=== PATIENT | female | born 1985 | race Caucasian/White ===

== ENCOUNTER 2020-08-07 10:15 | Observation (INO) | payer OTHER ==
[~2020-08-07] VITALS: Ht 167.6 cm; Wt 156.0 kg
[~2020-08-07 10:15] MED LIST: OLAN10 PO
[2020-08-07 10:59] LABS: BASOPHILS ABSOLUTE AUTO 0.04 K/mm3 (0.00-0.23); BASOPHILS PERCENT AUTO 0 % (0-2); EOSINOPHILS ABSOLUTE AUTO 0.13 K/mm3 (0.00-0.68); EOSINOPHILS PERCENT AUTO 1 % (0-6); Hematocrit 38.6 % (33.0-51.0); Hemoglobin 13.1 g/dL (11.5-16.0); IMMATURE GRAN ABSOLUTE AUTO 0.05 K/mm3 (0.00-0.10); IMMATURE GRAN PERCENT AUTO 0 % (0-1); LYMPHOCYTES ABSOLUTE AUTO 2.24 K/mm3 (0.84-5.20); LYMPHOCYTES PERCENT AUTO 17 % (21-46); MONOCYTES ABSOLUTE AUTO 0.68 K/mm3 (0.16-1.47); MONOCYTES PERCENT AUTO 5 % (4-13); Mean Corpuscular HGB 30.8 pg (26.0-34.0); Mean Corpuscular HGB Conc 33.9 g/dL (31.5-36.5); Mean Corpuscular Volume 91 fL (80-100); Mean Platelet Volume 10.4 fL (9.1-12.4); NEUTROPHILS ABSOLUTE AUTO 9.73 K/mm3 (1.96-9.15); NEUTROPHILS PERCENT AUTO 76 % (41-73); Platelet Count 278 K/mm3 (150-400); RDW Coefficient Variation 13.2 % (11.7-14.2); Red Blood Cell Count 4.26 M/mm3 (3.80-5.20); White Blood Cell Count 12.87 K/mm3 (4.00-11.30)
[2020-08-07 11:21] LABS: Ethanol (Alcohol), Blood, Med <3 mg/dL
[2020-08-07 11:22] LABS: Alanine Aminotransfer (ALT/SGP 26 U/L (12-78); Albumin, Blood 3.1 g/dL (3.4-5.0); Albumin/Globulin Ratio 0.8 (0.8-1.8); Alk Phos 49 U/L (50-136); Anion Gap 7 mmol/L (6-16); Aspartate Aminotrans (AST/SGOT 17 U/L (12-37); Bilirubin, Total 0.4 mg/dL (0.1-1.0); Blood Urea Nitrogen 5 mg/dL (8-24); Bun/Creatinine Ratio 10.3 (12.0-20.0); CO2, Blood 24 mmol/L (21-32); Calcium, Blood 8.7 mg/dL (8.5-10.1); Chloride, Blood 103 mmol/L (98-108); Creatinine, Blood 0.49 mg/dL (0.40-1.00); Free Thyroxine 1.11 ng/dL (0.70-1.60); Globulin, Blood 3.9 g/dL (2.2-4.0); Glomerular Filtration Rate >60 (60-); Glucose, Blood 161 mg/dL (70-99); Potassium, Blood 3.4 mmol/L (3.5-5.5); Salicylate 2.8 mg/dL (2.8-20.0); Sodium, Blood 134 mmol/L (136-145)
[2020-08-07 11:25] LABS: Acetaminophen, Random <2.0 ug/mL (10.0-30.0)
[2020-08-07 13:42] LABS: SARS-Cov-2 (COVID-19) PCR, MMC NEGATIVE (NEGATIVE)
[2020-08-07 13:46] LABS: Source, Urine Clean Catch
[2020-08-07 13:51] LABS: Bilirubin, Urine Neg (Neg); Blood, Urine Neg (Neg); Glucose Qualitative, Urine Neg (Neg); Ketones, Urine 4+ (Neg); Leukocyte Esterase, Urine 1+ (Neg); Nitrite, Urine Neg (Neg); Protein, Urine 2+ (Neg); Urobilinogen, Urine 3+ (Normal)
[2020-08-07 13:59] LABS: Appearance, Urine Hazy (Clear); Color, Urine Yellow (P-Yellow)
[2020-08-07 14:02] LABS: Bacteria Many /hpf; Mucus Light (0-Heavy); Red Blood Cells, Urine Not Seen /hpf (0-2); Squamous Epithelial Cells Many /hpf (Few); White Blood Cells, Urine 0-2 /hpf (0-5)
[2020-08-07 14:04] LABS: U Amphetamine Screen Not Detected; U Barbituate Screen Not Detected; U Benzodiazapine Screen Not Detected; U Buprenorphine Screen Not Detected; U Cannabinoids Screen DETECTED; U Cocaine Screen Not Detected; U Methadone Screen Not Detected; U Methamphetamine Screen Not Detected; U Opiates Screen Not Detected; U Oxycodone Screen Not Detected; U Phencyclidine Screen Not Detected; U Propoxyphene Screen Not Detected
[2020-08-07] MEDS ORDERED: LISI5 PO (21:01)
[2020-08-07] MEDS ORDERED: OLANZAPINE PO (21:01)
[2020-08-07] MEDS ORDERED: METFORMIN HCL500 M2 PO (21:01)
[2020-08-07] MEDS ORDERED: PRENATAL TABLE1 EAC2 PO (21:01)
[2020-08-07] MEDS ORDERED: METFORMIN HCL500 M3 PO (21:02)
[2020-08-07] MEDS ORDERED: SEMGLEE PE100 UNIT/1 SC (21:03)
[2020-08-07] MEDS ORDERED: ADMELOG SO100 UNIT/2 SC (21:04)
== END 2020-08-11 12:30 | disposition home or self-care (01) ==
LOC: ER 10:15 → EOR 10:16
PROVIDERS: ADMIT Emergency Medicine
DX: O99.341 Other mental disorders complicating pregnancy, first trimester (principal); F31.60 Bipolar disorder, current episode mixed, unspecified; Z3A.10 10 weeks gestation of pregnancy; O99.311 Alcohol use complicating pregnancy, first trimester; O99.321 Drug use complicating pregnancy, first trimester; F19.10 Other psychoactive substance abuse, uncomplicated; F10.10 Alcohol abuse, uncomplicated; Y90.0 Blood alcohol level of less than 20 mg/100 ml; I10 Essential (primary) hypertension; E11.9 Type 2 diabetes mellitus without complications; Z88.1 Allergy status to other antibiotic agents; Z88.8 Allergy status to other drugs, medicaments and biological substances; Z20.822 Contact with and (suspected) exposure to COVID-19
CPT/HCPCS: 36415; 76801; 80053; 81001; 81025; 82947; 84439; 84443; 84702; 85025; 87086; 96372; 99285-25; A9270; G0378; G0480; U0004

== ENCOUNTER → 2020-08-28 | Outpatient (CLI) | payer OTHER ==
[~2020-08-28] MED LIST changes: +ABILIFY MYCITE10 M2 PO; +ADMELOG SO100 UNIT/2 SC; +CLOTRIMAZOLE AF1525 TOP; +GLYBURIDE5 M2 PO; +LISI5 PO; +METFORMIN HCL500 M2 PO; +METFORMIN HCL500 M3 PO; +OLANZAPINE PO; +PRENATAL TABLE1 EAC2 PO; +SEMGLEE PE100 UNIT/1 SC
[2020-08-28 11:49] LABS: Source, Urine Clean Catch
[2020-08-28 14:50] LABS: Appearance, Urine Clear (Clear); Bilirubin, Urine Neg (Neg); Blood, Urine Neg (Neg); Color, Urine Yellow (P-Yellow); Glucose Qualitative, Urine 4+ (Neg); Ketones, Urine 1+ (Neg); Leukocyte Esterase, Urine 1+ (Neg); Nitrite, Urine Neg (Neg); Protein, Urine 1+ (Neg); Urobilinogen, Urine NORM (Normal)
[2020-08-28 15:47] LABS: Mucus Light (0-Heavy); Squamous Epithelial Cells Mod /hpf (Few)
[2020-08-28 15:48] LABS: Amorphous Light (0-Heavy); Bacteria Few /hpf; Red Blood Cells, Urine 0-2 /hpf (0-2); Transitional Epithelial Cells Rare /hpf (0-Rare)
== END | disposition home or self-care (01) ==
LOC: LAB SHORT 11:47 → LAB UCHC 11:47
PROVIDERS: Family Medicine
DX: Z34.91 Encounter for supervision of normal pregnancy, unspecified, first trimester (principal)
CPT/HCPCS: 81001; 87086

== ENCOUNTER 2020-09-02 10:04 | Observation (INO) | payer OTHER ==
[~2020-09-02] VITALS: Ht 167.6 cm; Wt 160.6 kg
[~2020-09-02 10:04] MED LIST changes: -ABILIFY MYCITE10 M2 PO; -CLOTRIMAZOLE AF1525 TOP; -GLYBURIDE5 M2 PO
[2020-09-02 15:09] LABS: BASOPHILS ABSOLUTE AUTO 0.05 K/mm3 (0.00-0.23); BASOPHILS PERCENT AUTO 0 % (0-2); EOSINOPHILS PERCENT AUTO 1 % (0-6); Hematocrit 37.4 % (33.0-51.0); Hemoglobin 12.4 g/dL (11.5-16.0); IMMATURE GRAN ABSOLUTE AUTO 0.08 K/mm3 (0.00-0.10); IMMATURE GRAN PERCENT AUTO 1 % (0-1); LYMPHOCYTES ABSOLUTE AUTO 2.49 K/mm3 (0.84-5.20); LYMPHOCYTES PERCENT AUTO 17 % (21-46); MONOCYTES ABSOLUTE AUTO 1.15 K/mm3 (0.16-1.47); MONOCYTES PERCENT AUTO 8 % (4-13); Mean Corpuscular HGB 30.5 pg (26.0-34.0); Mean Corpuscular HGB Conc 33.2 g/dL (31.5-36.5); Mean Corpuscular Volume 92 fL (80-100); Mean Platelet Volume 10.5 fL (9.1-12.4); NEUTROPHILS ABSOLUTE AUTO 10.45 K/mm3 (1.96-9.15); NEUTROPHILS PERCENT AUTO 72 % (41-73); Platelet Count 291 K/mm3 (150-400); RDW Coefficient Variation 13.2 % (11.7-14.2); Red Blood Cell Count 4.06 M/mm3 (3.80-5.20); White Blood Cell Count 14.42 K/mm3 (4.00-11.30)
[2020-09-02 15:24] LABS: Alanine Aminotransfer (ALT/SGP 35 U/L (12-78); Albumin/Globulin Ratio 0.8 (0.8-1.8); Alk Phos 43 U/L (50-136); Anion Gap 8 mmol/L (6-16); Aspartate Aminotrans (AST/SGOT 14 U/L (12-37); Bilirubin, Total 0.2 mg/dL (0.1-1.0); Blood Urea Nitrogen 7 mg/dL (8-24); Bun/Creatinine Ratio 12.3 (12.0-20.0); CO2, Blood 24 mmol/L (21-32); Calcium, Blood 8.7 mg/dL (8.5-10.1); Chloride, Blood 103 mmol/L (98-108); Creatinine, Blood 0.57 mg/dL (0.40-1.00); Ethanol (Alcohol), Blood, Med <3 mg/dL; Globulin, Blood 3.9 g/dL (2.2-4.0); Glomerular Filtration Rate >60 (60-); Glucose, Blood 148 mg/dL (70-99); Potassium, Blood 3.6 mmol/L (3.5-5.5); Salicylate 3.9 mg/dL (2.8-20.0); Sodium, Blood 135 mmol/L (136-145); Total Protein, Blood 6.9 g/dL (6.4-8.2)
[2020-09-02 15:33] LABS: Acetaminophen, Random <2.0 ug/mL (10.0-30.0)
[2020-09-02 16:19] LABS: SARS-Cov-2 (COVID-19) PCR, MMC NEGATIVE (NEGATIVE)
[2020-09-03 14:51] LABS: Source, Urine Clean Catch
[2020-09-03 14:57] LABS: Appearance, Urine Hazy (Clear); Bilirubin, Urine Neg (Neg); Blood, Urine Neg (Neg); Color, Urine Yellow (P-Yellow); Glucose Qualitative, Urine Neg (Neg); Ketones, Urine Neg (Neg); Leukocyte Esterase, Urine Neg (Neg); Nitrite, Urine Neg (Neg); Protein, Urine Neg (Neg); Urobilinogen, Urine NORM (Normal); pH, Urine 6.5 (5.0-8.0)
[2020-09-03 16:14] LABS: Red Blood Cells, Urine Not Seen /hpf (0-2); Squamous Epithelial Cells Rare /hpf (Few); White Blood Cells, Urine 0-2 /hpf (0-5)
[2020-09-03 16:15] LABS: Bacteria Mod /hpf
[2020-09-03 16:28] LABS: U Cannabinoids Screen DETECTED
[2020-09-03 16:29] LABS: U Amphetamine Screen Not Detected; U Barbituate Screen Not Detected; U Benzodiazapine Screen DETECTED; U Buprenorphine Screen Not Detected; U Cocaine Screen Not Detected; U Methadone Screen Not Detected; U Methamphetamine Screen Not Detected; U Opiates Screen Not Detected; U Oxycodone Screen Not Detected; U Phencyclidine Screen Not Detected; U Propoxyphene Screen Not Detected
== END 2020-09-06 05:49 ==
LOC: ER 10:04 → EOR 10:05
PROVIDERS: ADMIT Emergency Medicine
DX: O99.342 Other mental disorders complicating pregnancy, second trimester (principal); F31.2 Bipolar disorder, current episode manic severe with psychotic features; O24.312 Unspecified pre-existing diabetes mellitus in pregnancy, second trimester; E11.9 Type 2 diabetes mellitus without complications; O10.912 Unspecified pre-existing hypertension complicating pregnancy, second trimester; O99.212 Obesity complicating pregnancy, second trimester; E66.9 Obesity, unspecified; O99.332 Smoking (tobacco) complicating pregnancy, second trimester; F17.210 Nicotine dependence, cigarettes, uncomplicated; O99.322 Drug use complicating pregnancy, second trimester; F19.10 Other psychoactive substance abuse, uncomplicated; O99.312 Alcohol use complicating pregnancy, second trimester; F10.10 Alcohol abuse, uncomplicated; Z3A.16 16 weeks gestation of pregnancy; Y90.9 Presence of alcohol in blood, level not specified; Z20.822 Contact with and (suspected) exposure to COVID-19; Z88.8 Allergy status to other drugs, medicaments and biological substances; Z88.1 Allergy status to other antibiotic agents; Z91.030 Bee allergy status
CPT/HCPCS: 80053; 81001; 85025; 87086; 99285; A9270; G0378; G0480; Q3014; U0004

== ENCOUNTER 2020-10-02 23:24 | Emergency (ER) | payer OTHER ==
[~2020-10-02] VITALS: Ht 167.6 cm; Wt 160.1 kg
[2020-10-03] MEDS ORDERED: CLOTRIMAZOLE AF1525 TOP (06:16)
== END 2020-10-03 02:16 | disposition left against medical advice (07) ==
LOC: ER 23:24
DX: R53.1 Weakness (principal); Z53.21 Procedure and treatment not carried out due to patient leaving prior to being seen by health care provider
CPT/HCPCS: 76815; 99283-25

== ENCOUNTER 2020-10-03 02:28 | Emergency (ER) | payer OTHER ==
[2020-10-03] MEDS ORDERED: CLOTRIMAZOLE AF1525 TOP (06:16)
== END 2020-10-03 04:55 | disposition left against medical advice (07) ==
LOC: ER 02:28
DX: Z53.21 Procedure and treatment not carried out due to patient leaving prior to being seen by health care provider (principal)

== ENCOUNTER 2020-10-03 05:01 | Emergency (ER) | payer OTHER ==
[~2020-10-03] VITALS: Ht 167.6 cm; Wt 160.1 kg
[2020-10-03] MEDS ORDERED: CLOTRIMAZOLE AF1525 TOP (06:16)
== END 2020-10-03 06:27 | disposition home or self-care (01) ==
LOC: ER 05:01
DX: B35.6 Tinea cruris (principal); R53.83 Other fatigue; Z88.8 Allergy status to other drugs, medicaments and biological substances; Z91.030 Bee allergy status
CPT/HCPCS: 99282

== ENCOUNTER 2020-10-05 01:33 | Emergency (ER) | payer OTHER ==
[~2020-10-05] VITALS: Ht 177.8 cm; Wt 158.8 kg
[~2020-10-05 01:33] MED LIST changes: +CLOTRIMAZOLE AF1525 TOP
[2020-10-05] MEDS ORDERED: ABILIFY MYCITE10 M2 PO (12:30)
[2020-10-05] MEDS ORDERED: METFORMIN HCL500 M2 PO (12:31)
[2020-10-05] MEDS ORDERED: GLYBURIDE5 M2 PO (12:31)
[2020-10-05] MEDS ORDERED: PRENATAL TABLE1 EAC2 PO (12:32)
== END 2020-10-05 03:01 | disposition home or self-care (01) ==
LOC: ER 01:33
DX: Z00.00 Encounter for general adult medical examination without abnormal findings (principal); F17.200 Nicotine dependence, unspecified, uncomplicated; Z91.030 Bee allergy status; Z88.8 Allergy status to other drugs, medicaments and biological substances
CPT/HCPCS: 99283

== ENCOUNTER 2020-10-05 11:39 | Observation (INO) | payer OTHER ==
[~2020-10-05] VITALS: Ht 165.1 cm; Wt 160.0 kg
[2020-10-05] MEDS ORDERED: ABILIFY MYCITE10 M2 PO (12:30)
[2020-10-05] MEDS ORDERED: METFORMIN HCL500 M2 PO (12:31)
[2020-10-05] MEDS ORDERED: GLYBURIDE5 M2 PO (12:31)
[2020-10-05] MEDS ORDERED: PRENATAL TABLE1 EAC2 PO (12:32)
[2020-10-05 12:50] LABS: BASOPHILS ABSOLUTE AUTO 0.04 K/mm3 (0.00-0.23); BASOPHILS PERCENT AUTO 0 % (0-2); EOSINOPHILS PERCENT AUTO 1 % (0-6); Hematocrit 35.4 % (33.0-51.0); Hemoglobin 11.9 g/dL (11.5-16.0); IMMATURE GRAN ABSOLUTE AUTO 0.05 K/mm3 (0.00-0.10); IMMATURE GRAN PERCENT AUTO 0 % (0-1); LYMPHOCYTES ABSOLUTE AUTO 2.11 K/mm3 (0.84-5.20); LYMPHOCYTES PERCENT AUTO 17 % (21-46); MONOCYTES ABSOLUTE AUTO 0.71 K/mm3 (0.16-1.47); MONOCYTES PERCENT AUTO 6 % (4-13); Mean Corpuscular HGB 30.8 pg (26.0-34.0); Mean Corpuscular HGB Conc 33.6 g/dL (31.5-36.5); Mean Corpuscular Volume 92 fL (80-100); Mean Platelet Volume 10.3 fL (9.1-12.4); NEUTROPHILS ABSOLUTE AUTO 9.58 K/mm3 (1.96-9.15); NEUTROPHILS PERCENT AUTO 76 % (41-73); Platelet Count 295 K/mm3 (150-400); RDW Standard Deviation 43.5 fL (35.1-46.3); Red Blood Cell Count 3.86 M/mm3 (3.80-5.20); White Blood Cell Count 12.59 K/mm3 (4.00-11.30)
[2020-10-05 13:04] LABS: Acetaminophen, Random 2.5 ug/mL (10.0-30.0); Alanine Aminotransfer (ALT/SGP 30 U/L (12-78); Albumin/Globulin Ratio 0.8 (0.8-1.8); Alk Phos 49 U/L (50-136); Anion Gap 9 mmol/L (6-16); Aspartate Aminotrans (AST/SGOT 19 U/L (12-37); Bilirubin, Total 0.3 mg/dL (0.1-1.0); Blood Urea Nitrogen 5 mg/dL (8-24); Bun/Creatinine Ratio 9.7 (12.0-20.0); CO2, Blood 22 mmol/L (21-32); Calcium, Blood 8.6 mg/dL (8.5-10.1); Chloride, Blood 104 mmol/L (98-108); Creatinine, Blood 0.52 mg/dL (0.40-1.00); Ethanol (Alcohol), Blood, Med <3 mg/dL; Globulin, Blood 3.9 g/dL (2.2-4.0); Glomerular Filtration Rate >60 (60-); Glucose, Blood 125 mg/dL (70-99); Potassium, Blood 3.3 mmol/L (3.5-5.5); Salicylate 3.4 mg/dL (2.8-20.0); Sodium, Blood 135 mmol/L (136-145); Total Protein, Blood 6.9 g/dL (6.4-8.2)
[2020-10-05 16:13] LABS: Source, Urine Clean Catch
[2020-10-05 16:19] LABS: Appearance, Urine Clear (Clear); Bilirubin, Urine Neg (Neg); Blood, Urine Neg (Neg); Color, Urine Yellow (P-Yellow); Glucose Qualitative, Urine Neg (Neg); Ketones, Urine 1+ (Neg); Leukocyte Esterase, Urine Neg (Neg); Nitrite, Urine Neg (Neg); Protein, Urine Neg (Neg); Urobilinogen, Urine NORM (Normal)
[2020-10-05 16:33] LABS: U Amphetamine Screen Not Detected; U Barbituate Screen Not Detected; U Benzodiazapine Screen Not Detected; U Buprenorphine Screen Not Detected; U Cannabinoids Screen Not Detected; U Cocaine Screen Not Detected; U Methadone Screen Not Detected; U Methamphetamine Screen Not Detected; U Opiates Screen Not Detected; U Oxycodone Screen Not Detected; U Phencyclidine Screen Not Detected; U Propoxyphene Screen Not Detected
[2020-10-05 19:20] LABS: SARS-Cov-2 (COVID-19) PCR, MMC NEGATIVE (NEGATIVE)
--- NOTE | 2020-10-09 15:34 | NUR ---
NB NOT BORN ALIVE. 19-20 WEEK DEMISE
--- NOTE | 2020-10-09 18:45 | NUR ---
1200- NO NEW CHANGES, PT MONITORED CONTINUOUSLY. NO ISSUES OF ATTEMPTING SELF HARM. 1300- NO NEW CHANGES, PT MONITORED CONTINUOUSLY. NO ISSUES OF ATTEMPTING SELF HARM. 1400- NO NEW CHANGES, PT MONITORED CONTINUOUSLY. NO ISSUES OF ATTEMPTING SELF HARM. 1500- NO NEW CHANGES, PT MONITORED CONTINUOUSLY. NO ISSUES OF ATTEMPTING SELF HARM. 1600- NO NEW CHANGES, PT MONITORED CONTINUOUSLY. NO ISSUES OF ATTEMPTING SELF HARM. 1700- NO NEW CHANGES, PT MONITORED CONTINUOUSLY. NO ISSUES OF ATTEMPTING SELF HARM. 1800- NO NEW CHANGES, PT MONITORED CONTINUOUSLY. NO ISSUES OF ATTEMPTING SELF HARM.
--- NOTE | 2020-10-09 19:24 | NUR ---
1100 CALLED TO ED FOR IMMINENT DELIVERY. BILATERAL FEET AND LEGS UP TO THE KNEES VISABLE, WARM TO TOUCH. ATTEMPTED TO OBTAIN FHT'S UNSUCCESSFULLY. PATIENT REMAINED CALM AND COOPERATIVE WHILE WAITING FOR DR CORTEZ. WHEN DR CORTEZ ARRIVED, SHE EXAMINED PATIENT PATIENT WAS NOT FULLY DILATED AND HEAD WAS UNDELIVERED PATIENT WAS [facility]IVER AND RECOVERY
--- NOTE | 2020-10-09 19:52 | NUR ---
193 pt walked with security and sitter to ER room 22, to continue psych hold. belongings transported with her
[2020-10-10] MEDS ORDERED: HYDHCL25 PO ×2 (10:02→10:10)
[2020-10-10] MEDS ORDERED: IBU600 M1 PO ×2 (10:02→10:10)
[2020-10-10] MEDS ORDERED: ABILIFY MYCITE5 M2 PO ×2 (10:02→10:10)
[2020-10-10] MEDS ORDERED: OLAN10 PO (10:10)
[2020-10-10] MEDS ORDERED: METFORMIN HCL500 M2 PO (10:10)
== END 2020-10-09 11:40 | disposition other institution (70) ==
LOC: ER 11:39 → EOR 11:40 → ERHOLD 11:40 → EOR 11:40 → ER 11:40 → ERHOLD 10-09 11:40 → EOR 10-09 11:40 → BC 10-09 11:50 → ER 10-09 11:50 → BC 10-09 12:25 → ER 10-09 12:25 → EOR 10-09 19:56
PROVIDERS: Physician Assistant; ADMIT Student in an Organized Health Care Education/Training Program
DX: O99.342 Other mental disorders complicating pregnancy, second trimester (principal); F31.60 Bipolar disorder, current episode mixed, unspecified; F20.9 Schizophrenia, unspecified; O36.4XX0 Maternal care for intrauterine death, not applicable or unspecified; O99.322 Drug use complicating pregnancy, second trimester; F12.90 Cannabis use, unspecified, uncomplicated; F15.21 Other stimulant dependence, in remission; F10.10 Alcohol abuse, uncomplicated; O99.332 Smoking (tobacco) complicating pregnancy, second trimester; F17.210 Nicotine dependence, cigarettes, uncomplicated; O99.212 Obesity complicating pregnancy, second trimester; O24.112 Pre-existing type 2 diabetes mellitus, in pregnancy, second trimester; E11.9 Type 2 diabetes mellitus without complications; O10.912 Unspecified pre-existing hypertension complicating pregnancy, second trimester; Z79.84 Long term (current) use of oral hypoglycemic drugs; Z3A.19 19 weeks gestation of pregnancy; Z88.0 Allergy status to penicillin; Z88.8 Allergy status to other drugs, medicaments and biological substances; Z91.038 Other insect allergy status; Z20.822 Contact with and (suspected) exposure to COVID-19
CPT/HCPCS: 36415; 80053; 81003; 81025; 82947; 85025; 86850; 86900; 86901; 96372; 96374; 99285-25; A9270; G0378; G0480; J1200; J1630; J2405; J3010; Q0177; Q3014; U0004

== ENCOUNTER 2020-10-09 19:41 | Observation (INO) | payer OTHER ==
[~2020-10-09] VITALS: Ht 165.1 cm; Wt 71.7 kg
[~2020-10-09 19:41] MED LIST changes: +ABILIFY MYCITE10 M2 PO; +GLYBURIDE5 M2 PO
[2020-10-09 21:24] LABS: BASOPHILS ABSOLUTE AUTO 0.05 K/mm3 (0.00-0.23); BASOPHILS PERCENT AUTO 0 % (0-2); EOSINOPHILS ABSOLUTE AUTO 0.15 K/mm3 (0.00-0.68); EOSINOPHILS PERCENT AUTO 1 % (0-6); Hematocrit 35.6 % (33.0-51.0); IMMATURE GRAN ABSOLUTE AUTO 0.05 K/mm3 (0.00-0.10); IMMATURE GRAN PERCENT AUTO 0 % (0-1); LYMPHOCYTES ABSOLUTE AUTO 2.73 K/mm3 (0.84-5.20); LYMPHOCYTES PERCENT AUTO 20 % (21-46); MONOCYTES ABSOLUTE AUTO 0.85 K/mm3 (0.16-1.47); MONOCYTES PERCENT AUTO 6 % (4-13); Mean Corpuscular HGB 30.6 pg (26.0-34.0); Mean Corpuscular HGB Conc 33.7 g/dL (31.5-36.5); Mean Corpuscular Volume 91 fL (80-100); Mean Platelet Volume 10.4 fL (9.1-12.4); NEUTROPHILS ABSOLUTE AUTO 9.89 K/mm3 (1.96-9.15); NEUTROPHILS PERCENT AUTO 72 % (41-73); Platelet Count 278 K/mm3 (150-400); RDW Coefficient Variation 12.9 % (11.7-14.2); RDW Standard Deviation 41.9 fL (35.1-46.3); Red Blood Cell Count 3.92 M/mm3 (3.80-5.20); White Blood Cell Count 13.72 K/mm3 (4.00-11.30)
[2020-10-10] MEDS ORDERED: IBU600 M1 PO ×2 (10:02→10:10)
[2020-10-10] MEDS ORDERED: ABILIFY MYCITE5 M2 PO ×2 (10:02→10:10)
[2020-10-10] MEDS ORDERED: HYDHCL25 PO ×2 (10:02→10:10)
[2020-10-10] MEDS ORDERED: METFORMIN HCL500 M2 PO (10:10)
[2020-10-10] MEDS ORDERED: OLAN10 PO (10:10)
== END 2020-10-10 10:42 | disposition home or self-care (01) ==
LOC: ER 19:41 → EOR 19:42 → ER 20:13 → EOR 10-10 10:42
PROVIDERS: ADMIT Emergency Medicine
DX: O99.341 Other mental disorders complicating pregnancy, first trimester (principal); F31.30 Bipolar disorder, current episode depressed, mild or moderate severity, unspecified; O03.9 Complete or unspecified spontaneous abortion without complication; Z3A.00 Weeks of gestation of pregnancy not specified
CPT/HCPCS: 85025; 99285; A9270; G0378; Q0177

== ENCOUNTER 2021-03-15 05:51 | Emergency (ER) | payer OTHER ==
[~2021-03-15] VITALS: Ht 167.6 cm; Wt 154.7 kg
[~2021-03-15 05:51] MED LIST changes: +ABILIFY MYCITE5 M2 PO; +HYDHCL25 PO; +IBU600 M1 PO
[2021-03-15] MEDS ORDERED: OLAN10 PO (06:22)
== END 2021-03-15 06:35 | disposition home or self-care (01) ==
LOC: ER 05:51
DX: F32.A Depression, unspecified (principal); Z76.0 Encounter for issue of repeat prescription; Z91.030 Bee allergy status; Z88.1 Allergy status to other antibiotic agents; Z88.8 Allergy status to other drugs, medicaments and biological substances; Z79.84 Long term (current) use of oral hypoglycemic drugs; Z79.899 Other long term (current) drug therapy; F17.200 Nicotine dependence, unspecified, uncomplicated
CPT/HCPCS: 99282; A9270

== ENCOUNTER 2023-03-03 23:01 | Observation (INO) | payer MEDICARE ==
[~2023-03-03] VITALS: Ht 167.6 cm; Wt 92.1 kg
[2023-03-04 00:15] LABS: BASOPHILS ABSOLUTE AUTO 0.05 K/mm3 (0.00-0.23); BASOPHILS PERCENT AUTO 1 % (0-2); EOSINOPHILS ABSOLUTE AUTO 0.07 K/mm3 (0.00-0.68); EOSINOPHILS PERCENT AUTO 1 % (0-6); Hematocrit 40.3 % (33.0-51.0); Hemoglobin 13.7 g/dL (11.5-16.0); IMMATURE GRAN ABSOLUTE AUTO 0.02 K/mm3 (0.00-0.10); IMMATURE GRAN PERCENT AUTO 0 % (0-1); LYMPHOCYTES ABSOLUTE AUTO 2.72 K/mm3 (0.84-5.20); LYMPHOCYTES PERCENT AUTO 25 % (21-46); MONOCYTES ABSOLUTE AUTO 0.88 K/mm3 (0.16-1.47); MONOCYTES PERCENT AUTO 8 % (4-13); Mean Corpuscular HGB 30.7 pg (26.0-34.0); Mean Corpuscular Volume 90 fL (80-100); Mean Platelet Volume 9.9 fL (9.1-12.4); NEUTROPHILS ABSOLUTE AUTO 7.26 K/mm3 (1.96-9.15); NEUTROPHILS PERCENT AUTO 66 % (41-73); Platelet Count 334 K/mm3 (150-400); RDW Coefficient Variation 14.7 % (11.7-14.2); RDW Standard Deviation 48.4 fL (35.1-46.3); Red Blood Cell Count 4.46 M/mm3 (3.80-5.20)
[2023-03-04 00:39] LABS: U Amphetamine Screen Not Detected; U Barbituate Screen Not Detected; U Benzodiazapine Screen Not Detected; U Buprenorphine Screen Not Detected; U Cannabinoids Screen DETECTED; U Cocaine Screen Not Detected; U Methadone Screen Not Detected; U Methamphetamine Screen Not Detected; U Opiates Screen Not Detected; U Oxycodone Screen Not Detected; U Phencyclidine Screen Not Detected
[2023-03-04 00:44] LABS: Ethanol (Alcohol), Blood, Med <3 mg/dL; Salicylate 2.4 mg/dL (2.8-20.0)
[2023-03-04 00:52] LABS: Alanine Aminotransfer (ALT/SGP 26 U/L (12-78); Albumin, Blood 3.6 g/dL (3.4-5.0); Albumin/Globulin Ratio 0.9 (0.8-1.8); Alk Phos 58 U/L (50-136); Anion Gap 7 mmol/L (6-16); Aspartate Aminotrans (AST/SGOT 26 U/L (12-37); Bilirubin, Total 0.5 mg/dL (0.1-1.0); Blood Urea Nitrogen 12 mg/dL (8-24); CO2, Blood 25 mmol/L (21-32); Calcium, Blood 8.9 mg/dL (8.5-10.1); Chloride, Blood 105 mmol/L (98-108); Creatinine, Blood 0.48 mg/dL (0.40-1.00); Globulin, Blood 4.1 g/dL (2.2-4.0); Glomerular Filtration Rate 125 (60-); Glucose, Blood 168 mg/dL (70-99); Potassium, Blood 3.5 mmol/L (3.5-5.5); Sodium, Blood 137 mmol/L (136-145); Total Protein, Blood 7.7 g/dL (6.4-8.2)
[2023-03-04 00:53] LABS: Acetaminophen, Random <2.0 ug/mL (10.0-30.0)
[2023-03-04 20:44] VITALS: BP 105/92
== END 2023-03-05 11:47 | disposition home or self-care (01) ==
LOC: ER 23:01 → EOR 23:02
PROVIDERS: ADMIT Student in an Organized Health Care Education/Training Program
DX: F31.30 Bipolar disorder, current episode depressed, mild or moderate severity, unspecified (principal); R45.851 Suicidal ideations; S51.812A Laceration without foreign body of left forearm, initial encounter; S21.119A Laceration without foreign body of unspecified front wall of thorax without penetration into thoracic cavity, initial encounter; X78.9XXA Intentional self-harm by unspecified sharp object, initial encounter; F17.210 Nicotine dependence, cigarettes, uncomplicated; I10 Essential (primary) hypertension; E11.9 Type 2 diabetes mellitus without complications; Z88.8 Allergy status to other drugs, medicaments and biological substances; Z79.84 Long term (current) use of oral hypoglycemic drugs; Z79.899 Other long term (current) drug therapy
CPT/HCPCS: 80053; 81025; 84443; 85025; 96372; 99285-25; A9270; G0378; G0480; J1630; J2060